=== PATIENT | male | born 1965 | race Caucasian/White ===

== ENCOUNTER → 2025-07-29 12:50 | Outpatient (REF) | payer BC, SELFPAY | LOC: HWRAD 12:50 | PROVIDERS: ATTENDING PHYSICIAN Urology; FAMILY PHYSICIAN Family Medicine | DX: N50.89 Other specified disorders of the male genital organs (principal) | CPT/HCPCS: 76870; 93976 ==

== ENCOUNTER 2025-08-13 06:28 | Day surgery (SDC) | payer BC, SELFPAY ==
[2025-08-10 08:51] LABS: Hematocrit 47.7 % (39.0-52.0); Hemoglobin 16.0 g/dL (13.0-18.0); Mean Corp Hgb Conc. 33.5 g/dL (33.0-37.0); Mean Corpuscular Volume 88.0 fL (80.0-94.0); Platelet Count 152 10^3/uL (130-400); Red Cell Dist. Width 13.4 % (11.5-14.5)
[2025-08-10 09:32] LABS: Blood Urea Nitrogen 16 mg/dl (9-20); Calcium 9.1 mg/dl (8.4-10.2); Carbon Dioxide 27 mmol/L (22-30); Chloride 106 mmol/L (98-107); Glucose 157 mg/dl (70-99); Potassium 4.6 mmol/L (3.5-5.1); Sodium 141 mmol/L (135-145); eGFR > 60.00
[2025-08-10 13:44] VITALS: BMI 29.4
[2025-08-13] VITALS (7 sets, daily range): BP systolic 116–136; BP diastolic 70–90; BMI 29.4
[2025-08-13 11:44] LABS: Glucose - Point of Care 177 mg/dl (70-99)
[2025-08-13] MEDS: NORMOSOL-R/PLASMALYTE-A 1000 IV (12:01)
[2025-08-13 16:12] LABS: Glucose - Point of Care 149 mg/dl (70-99)
[2025-08-13] MEDS: TORADOL 15 MG IV (16:32)
[2025-08-13] MEDS: TYLENOL 650 MG PO (17:20)
== END 2025-08-13 17:30 | disposition home or self-care (01) ==
LOC: SDS 06:28
PROVIDERS: ATTENDING PHYSICIAN Urology; FAMILY PHYSICIAN Family Medicine
DX: N43.3 Hydrocele, unspecified (principal); N50.3 Cyst of epididymis; I86.1 Scrotal varices
CPT/HCPCS: 55040; 80048; 82962; 85027; 88304; 93005